=== PATIENT | male | born 1985 | race Caucasian/White ===

== ENCOUNTER 2025-02-18 11:47 | Outpatient (OUT) | payer OTHER, SELFPAY ==
--- NOTE | 2025-02-18 | XR_ITS ---
The [address] [address] Patient Name: SHER BETANCOURT MRN: [id number] date: 1985 Sex: M Assigned Patient Location: [facility] Current Patient Location: [facility] Accession/Order Number: [id number] Exam Date: 02/18/2025 12:24 Report Date: 02/18/2025 12:25 At the request of: EVE ARRIETA DO Procedure: XR shoulder RT min 2V RIGHT SHOULDER - 4 views CLINICAL HISTORY: Chronic posterior right shoulder pain COMPARISON: None AP, Y, axillary and Grashey views were obtained. There is no evidence of fracture or dislocation. There is minor sclerosis of greater tuberosity. There are no significant soft tissue abnormalities. XR/XR shoulder RT min 2V IMPRESSION: NO ACUTE BONY FINDINGS. Impression dictated by: Polina Monroy M.D. 02/18/2025 12:25 PM Dictation Location: [place] [address] Electronically authenticated by: [id number] Y Date: 02/18/2025 12:25
--- OUTSIDE RECORDS SUMMARY | 2025-02-18 11:49 | XMS_ITS | Clinical Summary ---
Author Organization [facility] Address [address] [place] [address] Care Team Providers Care Nickel Operator Name Role Phone Unavailable Primary Care Provider Unavailabl e Allergies Active Allergy Reactions Criticality Noted Date Comments Nickel 04/20/2024 Other Reaction(s): Rash, Unknown Reaction Medications benztropine (Cogentin) 1 MG tablet Take 1 mg by mouth in the morning and 1 mg before bedtime. Active ibuprofen 600 MG tablet Take 600 mg by mouth 4 Active paliperidone (Invega) 3 MG 24 hr tablet Take 3 mg by mouth at bedtime 4 Active tadalafil (Cialis) 5 MG tablet TAKE 1 TO 3 TABLETS BY MOUTH 1 HOUR PRIOR TO SEXUAL ACTIVITY NEEDED FOR ERECTILE DYSFUNCTION. DO NOT EXCEED 4 TABLETS/24 HOURS. Active traZODone (Desyrel) 50 MG tablet See Instructions, 0.5 tab in the PM. If not effective, then may take an additional 0.5 tab., # 30 tab(s), Refills(s) 0, Pharmacy: [facility], 178, cm, 05/08/24 14:30:00 EDT, Height/Length Dosing, 81, kg, 05/08/24 14:30:00 EDT, Weight Dosing 4 Active glucosamine-cho ndroitin 500-400 MG tablet Take 1 tablet by mouth in the morning and 1 tablet in the evening and 1 tablet before bedtime. Active KRILL OIL PO Take by mouth Act mady acetaminophen (Tylenol) 500 MG tablet Take by mouth Active b complex vitamins capsule Take 1 capsule by mouth Daily Active Cyanocobalamin (VITAMIN B 12 PO) Take by mouth Active Active Problems No known active problems Social History Tobacco Use Types Packs/Day Years Used Date Smoking Tobacco: Former Cigarettes Smokeless Tobacco: Never Tobacco Cessation:Counseling Given: Not Answered Alcohol Use Standard Drinks/Week Comments Not Currently 0 (1 standard drink = 0.6 oz pur e alcohol) Sex and Gender Information Value Date Recorded Sex Assigned at Not on file Legal Sex Male 11:53 AM EST Gender Identity Not on file Sexual Orientation Not on file Last Filed Vital Signs Vital Sign Reading Time Taken Comments Blood Pressure - - Pulse - - Temperature - - Respiratory Rate - - Oxygen Saturation - - Inhaled Oxygen Concentration - - Weight 83 kg (183 lb) 07/02/2024 1:09 PM EST Height 180 cm (5' 10.87 ) 07/02/2024 1:09 PM EST Body Mass Index 25.62 07/02/2024 1:09 PM EST Plan of Treatment Not on file Insurance [employer]
--- OUTSIDE RECORDS SUMMARY | 2025-02-18 11:49 | XMS_ITS | Continuity of Care Document ---
Author Organization [facility] Address [address] [address] [place] [address] Phone [phone] Care Team Providers Care Clinical Resource Director Name Role Phone ER - [facility] Care Team Information Rec eiver Unavailable MACEY CURRIE M.D. Care Team Informat ion Elevator Builder Unavailable None Primary Care Physician Unavailab le Problems Active Problems Provider Date Open wound of hand except fi ngers with complication Hernán Austin M.D. Onset: 01/10/2013 Disorder due to and followin g fracture of upper limb Macey Currie M.D. Onset: 06/23/2015 Fracture of unspecified phal anx of left little finger, subsequent encounter for fracture with routine healing Macey Currie M.D. Onset: 07/07/2015 Allergies and adverse reactions Description No Known Drug Allergies Medications Description No Active Medications Immunizations CPT Code Status Date Vaccine Lot # [id number] Refused 08/19/2015 Pneumococcal Vaccine 2Yrs Or Older 14173 Refused 08/19/2015 Influenza Virus Split 3 Yrs And Above For Intramuscular Use
== END 2025-02-18 11:48 | disposition home or self-care (01) ==
LOC: RAD 11:47
PROVIDERS: PCP Family Medicine; Visit Provider Orthopaedic Surgery Orthopaedic Trauma
DX: M25.511 Pain in right shoulder (principal)
CPT/HCPCS: 73030